=== PATIENT | male | born 1950 | race Caucasian/White ===

== ENCOUNTER 2016-07-29 16:41 | Inpatient (IN) | payer MEDICARE, OTHER ==
[~2016-07-29] VITALS: Ht 175.3 cm; Wt 124.2 kg
[2016-07-29] MEDS ORDERED: SODIUM CHLORIDE FLUSH 10ML SYR IVF ONE (17:00)
[2016-07-29] MEDS ORDERED: CEFAZOLIN PMX 1GM/50ML 50 ML IV ONE (17:30)
[2016-07-29] MEDS ORDERED: VANCOMYCIN PER PHARMACY MC PRN (17:30)
[2016-07-29] MEDS ORDERED: [UNRECOGNIZED DRUG - CODE] PO (17:31)
[2016-07-29] MEDS ORDERED: GABA600T2 PO (17:31)
[2016-07-29] MEDS ORDERED: FURO-93 PO (17:31)
[2016-07-29] MEDS ORDERED: ATOR10TA PO (17:31)
[2016-07-29] MEDS ORDERED: METF10002 PO (17:31)
[2016-07-29] MEDS ORDERED: POTA10TA11 PO (17:39)
[2016-07-29] MEDS ORDERED: INSU200I4 SQ (17:41)
[2016-07-29] MEDS ORDERED: CEFAZOLIN PMX 1GM/50ML 50 ML ONE (17:41)
[2016-07-29] MEDS ORDERED: LIRA0.6P2 SQ (17:41)
[2016-07-29] MEDS ORDERED: ONDANSETRON 2MG/ML, 2ML ONE (17:44)
[2016-07-29] MEDS ORDERED: MORPHINE SULFATE 4 MG/ML, 1ML ONE (17:44)
[2016-07-29 17:49] LABS: ASPARTATE AMINO TRANSFERASE 21 U/L (15-37); BLOOD UREA NITROGEN 46 mg/dL (7-18)
[2016-07-29] MEDS ORDERED: VANCOMYCIN 1,900 MG in SODIUM CHLORIDE 0.9% 250 ML IV ONE (18:00)
[2016-07-29] MEDS ORDERED: MORPHINE SULFATE 4 MG/ML, 1ML IVPush PRN (18:00)
[2016-07-29] MEDS ORDERED: ONDANSETRON 2MG/ML, 2ML IVPush ONE (18:00)
[2016-07-29] MEDS ORDERED: FUROSEMIDE 20 MG/2 ML IV ONE (18:30)
[2016-07-29] MEDS ORDERED: SODIUM CHLORIDE 0.9% 1,000ML IVBOLUS ONE (18:30)
[2016-07-29] MEDS ORDERED: FUROSEMIDE 20 MG/2 ML ONE (18:48)
[2016-07-29 18:53] LABS: ANTI-Xa-UNFRACTIONATED HEP 0.07 IU/mL (0.30-0.70)
[2016-07-29] MEDS ORDERED: HEPARIN 25,000 UNITS/500ML PMX 500 ML IV PRN (19:00)
[2016-07-29] MEDS ORDERED: HEPARIN 5,000 UNITS/ML, 1ML IV PRN (19:00)
[2016-07-29] MEDS ORDERED: HEPARIN 5,000 UNITS/ML, 1ML IV ONE (19:00)
[2016-07-29] MEDS ORDERED: HEPARIN 25,000 UNITS/500ML PMX 500 ML ONE (19:21)
[2016-07-29] MEDS ORDERED: HEPARIN 5,000 UNITS/ML, 1ML ONE (19:21)
[2016-07-29] MEDS ORDERED: ACETAMINOPHEN 325 MG TABLET PO PRN (19:30)
[2016-07-29] MEDS ORDERED: ONDANSETRON 2MG/ML, 2ML IVP PRN (19:30)
[2016-07-29] MEDS: CEFTAROLINE 300 MG in SODIUM CHLORIDE 0.9% 100 ML IV SCH (19:30)
[2016-07-29] MEDS ORDERED: PHARMACY MAY ADJ FOR RENAL FX MC PRN (19:30)
[2016-07-29] MEDS ORDERED: POLYETHYLENE GLYCOL 17 GM PACKET PO PRN (19:30)
[2016-07-29] MEDS ORDERED: BISACODYL 10 MG SUPP PR PRN (19:30)
[2016-07-29 20:13] LABS: PATH.CAST-FLAG NOT PRESENT; SPERM-FLAG NOT PRESENT; SRC-FLAG NOT PRESENT; XTAL-FLAG NOT PRESENT; YLC-FLAG NOT PRESENT
[2016-07-29 20:42] VITALS: BP 183/91
[2016-07-29] MEDS: SODIUM CHLORIDE 0.9% 1,000 ML IV SCH (21:13)
[2016-07-29] MEDS: CARVEDILOL 12.5 MG TABLET PO SCH (21:31)
[2016-07-29] MEDS: INSULIN REGULAR 100 UNITS/ML, 3ML VIAL SQ-INSULIN SCH (21:32)
[2016-07-29] MEDS: INSULIN DETEMIR 100 UNITS/ML, PEN SQ-INSULIN SCH (21:33)
[2016-07-29] MEDS: GABAPENTIN 300 MG CAPSULE PO SCH (21:35)
[2016-07-30 02:26] VITALS: BP 145/79
[2016-07-30 02:44] LABS: BLOOD UREA NITROGEN 46 mg/dL (7-18)
[2016-07-30 02:47] LABS: ASPARTATE AMINO TRANSFERASE 18 U/L (15-37)
[2016-07-30] MEDS: HEPARIN 5,000 UNITS/ML, 1ML IV PRN ×2 (02:48→15:43)
[2016-07-30] MEDS: SODIUM CHLORIDE 0.9% 1,000 ML IV SCH ×2 (06:33→20:11)
[2016-07-30] MEDS: CARVEDILOL 12.5 MG TABLET PO SCH ×2 (06:33→17:01)
[2016-07-30] MEDS: INSULIN REGULAR 100 UNITS/ML, 3ML VIAL SQ-INSULIN SCH ×4 (07:00→20:37)
[2016-07-30] MEDS: INSULIN DETEMIR 100 UNITS/ML, PEN SQ-INSULIN SCH ×2 (07:29→20:38)
[2016-07-30 08:00] VITALS: BP 137/78
[2016-07-30] MEDS ORDERED: PHARMACY MAY ADJ FOR RENAL FX MC PRN (09:30)
[2016-07-30] MEDS: ATORVASTATIN 10 MG TABLET PO SCH (09:33)
[2016-07-30] MEDS: CEFTAROLINE 300 MG in SODIUM CHLORIDE 0.9% 100 ML IV SCH ×2 (09:33→20:36)
[2016-07-30] MEDS: SENNA/DOCUSATE TABLET PO SCH (09:33)
[2016-07-30] MEDS: GABAPENTIN 300 MG CAPSULE PO SCH ×3 (09:33→20:11)
[2016-07-30] MEDS: TAMSULOSIN 0.4 MG CAP.ER.24H PO SCH (10:47)
[2016-07-30 14:12] VITALS: BP 153/81
[2016-07-30 15:01] LABS: C-REACTIVE PROTEIN, QUANT 0.23 mg/dL (0.02-0.49)
[2016-07-30] MEDS: OXYcodone IR 5MG TABLET PO PRN (17:01)
[2016-07-30 19:32] VITALS: BP 133/74
[2016-07-30] MEDS: HEPARIN 25,000 UNITS/500ML PMX 500 ML IV PRN (20:17)
[2016-07-31 01:46] VITALS: BP 115/72
[2016-07-31 03:49] LABS: BLOOD UREA NITROGEN 45 mg/dL (7-18)
[2016-07-31] MEDS: SODIUM CHLORIDE 0.9% 1,000 ML IV SCH ×2 (06:05→17:41)
[2016-07-31] MEDS: CARVEDILOL 12.5 MG TABLET PO SCH ×2 (06:05→17:45)
[2016-07-31] MEDS: INSULIN REGULAR 100 UNITS/ML, 3ML VIAL SQ-INSULIN SCH ×4 (07:00→22:50)
[2016-07-31 08:11] VITALS: BP 131/72
[2016-07-31] MEDS: TAMSULOSIN 0.4 MG CAP.ER.24H PO SCH (08:31)
[2016-07-31] MEDS: ATORVASTATIN 10 MG TABLET PO SCH (08:31)
[2016-07-31] MEDS: INSULIN DETEMIR 100 UNITS/ML, PEN SQ-INSULIN SCH ×2 (08:31→20:24)
[2016-07-31] MEDS: GABAPENTIN 300 MG CAPSULE PO SCH ×3 (08:31→22:50)
[2016-07-31] MEDS: SENNA/DOCUSATE TABLET PO SCH (09:00)
[2016-07-31] MEDS: CEFTAROLINE 300 MG in SODIUM CHLORIDE 0.9% 100 ML IV SCH ×2 (10:33→22:51)
[2016-07-31 13:29] VITALS: BP 121/68
[2016-07-31] MEDS: HEPARIN 25,000 UNITS/500ML PMX 500 ML IV PRN (17:45)
[2016-07-31 20:28] VITALS: BP 118/87
[2016-08-01 01:46] VITALS: BP 121/71
[2016-08-01 05:44] LABS: BLOOD UREA NITROGEN 47 mg/dL (7-18)
[2016-08-01 05:51] LABS: TOTAL IRON BINDING CAPACITY 217 mcg/dL (250-450)
[2016-08-01] MEDS: CARVEDILOL 12.5 MG TABLET PO SCH ×2 (05:53→18:00)
[2016-08-01] MEDS: SODIUM CHLORIDE 0.9% 1,000 ML IV SCH (05:53)
[2016-08-01] MEDS: HEPARIN 5,000 UNITS/ML, 1ML IV PRN ×2 (06:14→23:53)
[2016-08-01] MEDS: INSULIN REGULAR 100 UNITS/ML, 3ML VIAL SQ-INSULIN SCH ×4 (07:00→21:32)
[2016-08-01 07:55] VITALS: BP 118/65
[2016-08-01] MEDS: INSULIN DETEMIR 100 UNITS/ML, PEN SQ-INSULIN SCH ×2 (08:40→19:40)
[2016-08-01] MEDS: CEFTAROLINE 300 MG in SODIUM CHLORIDE 0.9% 100 ML IV SCH (08:40)
[2016-08-01] MEDS: SENNA/DOCUSATE TABLET PO SCH (08:41)
[2016-08-01] MEDS: ATORVASTATIN 10 MG TABLET PO SCH (08:41)
[2016-08-01] MEDS: GABAPENTIN 300 MG CAPSULE PO SCH ×3 (08:41→21:29)
[2016-08-01] MEDS: TAMSULOSIN 0.4 MG CAP.ER.24H PO SCH (08:41)
[2016-08-01] MEDS ORDERED: FUROSEMIDE 20 MG/2 ML ONE (12:33)
[2016-08-01 13:38] VITALS: BP 156/85
[2016-08-01] MEDS: HEPARIN 25,000 UNITS/500ML PMX 500 ML IV PRN (13:55)
[2016-08-01] MEDS: CHOLECALCIFEROL 1,000 UNIT TABLET PO SCH (15:08)
[2016-08-01] MEDS: OXYcodone IR 5MG TABLET PO PRN (15:08)
[2016-08-01 20:27] VITALS: BP 150/77
[2016-08-01] MEDS: DOXYCYCLINE 100MG TABLET PO SCH (21:30)
[2016-08-02 01:33] VITALS: BP 119/68
[2016-08-02] MEDS: OXYcodone IR 5MG TABLET PO PRN ×3 (01:47→16:31)
[2016-08-02] MEDS: CARVEDILOL 12.5 MG TABLET PO SCH ×2 (06:02→17:08)
[2016-08-02 06:17] LABS: BLOOD UREA NITROGEN 41 mg/dL (7-18)
[2016-08-02] MEDS: HEPARIN 25,000 UNITS/500ML PMX 500 ML IV PRN (08:21)
[2016-08-02 08:30] VITALS: BP 125/71
[2016-08-02] MEDS: INSULIN DETEMIR 100 UNITS/ML, PEN SQ-INSULIN SCH ×2 (08:31→20:08)
[2016-08-02] MEDS: INSULIN REGULAR 100 UNITS/ML, 3ML VIAL SQ-INSULIN SCH ×4 (08:32→20:09)
[2016-08-02] MEDS: ATORVASTATIN 10 MG TABLET PO SCH (08:33)
[2016-08-02] MEDS: DOXYCYCLINE 100MG TABLET PO SCH ×2 (08:33→20:08)
[2016-08-02] MEDS: TAMSULOSIN 0.4 MG CAP.ER.24H PO SCH (08:33)
[2016-08-02] MEDS: SENNA/DOCUSATE TABLET PO SCH (08:33)
[2016-08-02] MEDS: GABAPENTIN 300 MG CAPSULE PO SCH ×3 (08:34→20:08)
[2016-08-02] MEDS: CHOLECALCIFEROL 1,000 UNIT TABLET PO SCH (08:34)
[2016-08-02] MEDS: FUROSEMIDE 20 MG TABLET PO SCH (13:52)
[2016-08-02 14:30] VITALS: BP 133/70
[2016-08-02 19:43] VITALS: BP 116/68
[2016-08-03] MEDS: OXYcodone IR 5MG TABLET PO PRN ×4 (00:10→17:21)
[2016-08-03 02:11] VITALS: BP 124/67
[2016-08-03] MEDS: HEPARIN 25,000 UNITS/500ML PMX 500 ML IV PRN ×3 (02:30→19:51)
[2016-08-03 05:59] LABS: BLOOD UREA NITROGEN 49 mg/dL (7-18)
[2016-08-03] MEDS: CARVEDILOL 12.5 MG TABLET PO SCH ×3 (06:18→17:21)
[2016-08-03] MEDS: HEPARIN 5,000 UNITS/ML, 1ML IV PRN ×3 (06:39→19:50)
[2016-08-03 07:18] VITALS: BP 121/69
[2016-08-03] MEDS: CHOLECALCIFEROL 1,000 UNIT TABLET PO SCH (07:46)
[2016-08-03] MEDS: ATORVASTATIN 10 MG TABLET PO SCH (07:46)
[2016-08-03] MEDS: TAMSULOSIN 0.4 MG CAP.ER.24H PO SCH (07:46)
[2016-08-03] MEDS: FUROSEMIDE 20 MG TABLET PO SCH (07:46)
[2016-08-03] MEDS: GABAPENTIN 300 MG CAPSULE PO SCH ×3 (07:46→20:32)
[2016-08-03] MEDS: DOXYCYCLINE 100MG TABLET PO SCH ×2 (07:46→20:32)
[2016-08-03] MEDS: INSULIN DETEMIR 100 UNITS/ML, PEN SQ-INSULIN SCH ×2 (07:47→20:32)
[2016-08-03] MEDS: SENNA/DOCUSATE TABLET PO SCH (07:47)
[2016-08-03] MEDS: INSULIN REGULAR 100 UNITS/ML, 3ML VIAL SQ-INSULIN SCH ×4 (07:47→20:36)
[2016-08-03 13:59] VITALS: BP 107/64
[2016-08-03 19:18] VITALS: BP 136/73
[2016-08-04] VITALS (7 sets, daily range): BP systolic 121–177; BP diastolic 66–87
[2016-08-04 02:23] LABS: BLOOD UREA NITROGEN 63 mg/dL (7-18)
[2016-08-04 02:37] LABS: DIFF TOTAL CELLS COUNTED 100 CELL DIFF
[2016-08-04 02:40] LABS: ANISOCYTOSIS 1+; VERIFY COUNTS? YES
[2016-08-04] MEDS: OXYcodone IR 5MG TABLET PO PRN ×2 (04:39→12:37)
[2016-08-04] MEDS: HEPARIN 25,000 UNITS/500ML PMX 500 ML IV PRN ×2 (05:57→17:33)
[2016-08-04] MEDS: CARVEDILOL 12.5 MG TABLET PO SCH ×2 (05:58→17:16)
[2016-08-04] MEDS: INSULIN DETEMIR 100 UNITS/ML, PEN SQ-INSULIN SCH ×3 (07:30→22:03)
[2016-08-04] MEDS: INSULIN REGULAR 100 UNITS/ML, 3ML VIAL SQ-INSULIN SCH ×4 (08:55→22:04)
[2016-08-04] MEDS: GABAPENTIN 300 MG CAPSULE PO SCH ×3 (08:59→21:58)
[2016-08-04] MEDS: TAMSULOSIN 0.4 MG CAP.ER.24H PO SCH (08:59)
[2016-08-04] MEDS: FUROSEMIDE 20 MG TABLET PO SCH (08:59)
[2016-08-04] MEDS: CHOLECALCIFEROL 1,000 UNIT TABLET PO SCH (09:00)
[2016-08-04] MEDS: DOXYCYCLINE 100MG TABLET PO SCH ×2 (09:00→21:58)
[2016-08-04] MEDS: SENNA/DOCUSATE TABLET PO SCH (09:00)
[2016-08-04] MEDS ORDERED: MAALOX/HYOSCYAMINE/LIDOCAINE 45 ML BOTTLE PO ONE (11:00)
[2016-08-04 11:06] LABS: UR ALBUMIN 79.1 % (.); UR ALPHA-1-GLOBULIN 1.4 % (.); UR ALPHA-2-GLOBULIN 3.8 % (.); UR GAMMA GLOBULIN 6.8 % (.); UR M-SPIKE % Not Observed % (Not Observed)
[2016-08-04 11:59] LABS: IS PT STATUS REG ER OR PRE ER? NO
[2016-08-04 16:06] LABS: APTT 25.2 sec (.); PROTHROMBIN TIME 10.7 sec (.)
[2016-08-04 17:21] LABS: IS PT STATUS REG ER OR PRE ER? NO
[2016-08-04] MEDS ORDERED: INSULIN DETEMIR 100 UNITS/ML, PEN SQ-INSULIN SCH (19:30)
[2016-08-04] MEDS: ATORVASTATIN 10 MG TABLET PO SCH (21:58)
[2016-08-05 03:19] VITALS: BP 138/75
[2016-08-05] MEDS: CARVEDILOL 12.5 MG TABLET PO SCH ×2 (05:49→18:01)
[2016-08-05] MEDS: OXYcodone IR 5MG TABLET PO PRN ×5 (05:49→23:40)
[2016-08-05 06:39] LABS: BLOOD UREA NITROGEN 78 mg/dL (7-18)
[2016-08-05] MEDS: HEPARIN 25,000 UNITS/500ML PMX 500 ML IV PRN ×2 (06:45→18:22)
[2016-08-05 07:08] VITALS: BP 94/52
[2016-08-05] MEDS: HEPARIN 5,000 UNITS/ML, 1ML IV PRN ×3 (07:20→21:26)
[2016-08-05] MEDS: SENNA/DOCUSATE TABLET PO SCH (09:00)
[2016-08-05 09:10] VITALS: BP 115/65
[2016-08-05] MEDS: INSULIN REGULAR 100 UNITS/ML, 3ML VIAL SQ-INSULIN SCH ×4 (09:11→21:32)
[2016-08-05] MEDS: TAMSULOSIN 0.4 MG CAP.ER.24H PO SCH (09:12)
[2016-08-05] MEDS: GABAPENTIN 300 MG CAPSULE PO SCH ×3 (09:12→21:30)
[2016-08-05] MEDS: DOXYCYCLINE 100MG TABLET PO SCH ×2 (09:12→21:31)
[2016-08-05] MEDS: INSULIN DETEMIR 100 UNITS/ML, PEN SQ-INSULIN SCH ×2 (09:13→21:31)
[2016-08-05] MEDS: CHOLECALCIFEROL 1,000 UNIT TABLET PO SCH (09:13)
[2016-08-05 12:06] LABS: A/G RATIO 1.3 (0.7-1.7); ALBUMIN 2.8 g/dL (2.9-4.4); ALPHA-1-GLOBULIN 0.2 g/dL (0.0-0.4); BETA GLOBULIN 0.7 g/dL (0.7-1.3); GAMMA GLOBULIN 0.4 g/dL (0.4-1.8); PROTEIN TOTAL 4.9 g/dL (6.0-8.5)
[2016-08-05 13:27] VITALS: BP 131/68
[2016-08-05 20:55] VITALS: BP 142/71
[2016-08-05] MEDS: ATORVASTATIN 10 MG TABLET PO SCH (21:30)
[2016-08-06 02:59] VITALS: BP 130/72
[2016-08-06 04:08] LABS: BLOOD UREA NITROGEN 89 mg/dL (7-18)
[2016-08-06] MEDS: HEPARIN 5,000 UNITS/ML, 1ML IV PRN ×2 (04:42→12:44)
[2016-08-06] MEDS: CARVEDILOL 12.5 MG TABLET PO SCH ×2 (05:00→17:45)
[2016-08-06] MEDS: HEPARIN 25,000 UNITS/500ML PMX 500 ML IV PRN ×2 (06:19→18:42)
[2016-08-06 07:45] VITALS: BP 112/67
[2016-08-06] MEDS: INSULIN REGULAR 100 UNITS/ML, 3ML VIAL SQ-INSULIN SCH ×4 (08:17→21:16)
[2016-08-06] MEDS: CHOLECALCIFEROL 1,000 UNIT TABLET PO SCH (08:18)
[2016-08-06] MEDS: GABAPENTIN 300 MG CAPSULE PO SCH ×3 (08:18→21:15)
[2016-08-06] MEDS: DOXYCYCLINE 100MG TABLET PO SCH ×2 (08:18→21:15)
[2016-08-06] MEDS: ATORVASTATIN 10 MG TABLET PO SCH (08:19)
[2016-08-06] MEDS: TAMSULOSIN 0.4 MG CAP.ER.24H PO SCH (08:19)
[2016-08-06] MEDS: SENNA/DOCUSATE TABLET PO SCH (08:19)
[2016-08-06] MEDS: INSULIN DETEMIR 100 UNITS/ML, PEN SQ-INSULIN SCH ×2 (08:20→21:16)
[2016-08-06] MEDS: OXYcodone IR 5MG TABLET PO PRN ×3 (11:17→21:16)
[2016-08-06 15:15] VITALS: BP 132/77
[2016-08-06 19:46] VITALS: BP 137/72
[2016-08-07 01:21] VITALS: BP 134/73
[2016-08-07] MEDS: HEPARIN 25,000 UNITS/500ML PMX 500 ML IV PRN ×2 (03:31→14:02)
[2016-08-07] MEDS: CARVEDILOL 12.5 MG TABLET PO SCH ×2 (05:19→17:19)
[2016-08-07 08:21] LABS: BLOOD UREA NITROGEN 96 mg/dL (7-18)
[2016-08-07 08:45] VITALS: BP 129/73
[2016-08-07] MEDS: SENNA/DOCUSATE TABLET PO SCH (09:00)
[2016-08-07] MEDS: GABAPENTIN 300 MG CAPSULE PO SCH ×3 (09:22→22:20)
[2016-08-07] MEDS: TAMSULOSIN 0.4 MG CAP.ER.24H PO SCH (09:22)
[2016-08-07] MEDS: DOXYCYCLINE 100MG TABLET PO SCH ×2 (09:22→22:20)
[2016-08-07] MEDS: ATORVASTATIN 10 MG TABLET PO SCH (09:22)
[2016-08-07] MEDS: CHOLECALCIFEROL 1,000 UNIT TABLET PO SCH (09:23)
[2016-08-07] MEDS: INSULIN DETEMIR 100 UNITS/ML, PEN SQ-INSULIN SCH ×2 (09:24→22:21)
[2016-08-07] MEDS: INSULIN REGULAR 100 UNITS/ML, 3ML VIAL SQ-INSULIN SCH ×4 (09:25→22:21)
[2016-08-07] MEDS: OXYcodone IR 5MG TABLET PO PRN ×3 (12:17→22:20)
[2016-08-07] MEDS: SODIUM CHLORIDE 0.9% 1,000 ML IV SCH (13:00)
[2016-08-07 15:20] VITALS: BP 128/73
[2016-08-07 20:58] VITALS: BP 124/70
[2016-08-08] MEDS: HEPARIN 25,000 UNITS/500ML PMX 500 ML IV PRN ×3 (01:05→20:55)
[2016-08-08] MEDS: SODIUM CHLORIDE 0.9% 1,000 ML IV SCH (01:06)
[2016-08-08 01:31] VITALS: BP 156/80
[2016-08-08] MEDS: OXYcodone IR 5MG TABLET PO PRN ×4 (01:47→22:22)
[2016-08-08 05:09] LABS: BLOOD UREA NITROGEN 94 mg/dL (7-18)
[2016-08-08] MEDS: CARVEDILOL 12.5 MG TABLET PO SCH ×2 (05:54→17:41)
[2016-08-08] MEDS: INSULIN REGULAR 100 UNITS/ML, 3ML VIAL SQ-INSULIN SCH ×4 (07:00→22:23)
[2016-08-08 08:32] VITALS: BP 152/82
[2016-08-08] MEDS: TAMSULOSIN 0.4 MG CAP.ER.24H PO SCH (09:36)
[2016-08-08] MEDS: SENNA/DOCUSATE TABLET PO SCH (09:36)
[2016-08-08] MEDS: GABAPENTIN 300 MG CAPSULE PO SCH ×3 (09:36→22:23)
[2016-08-08] MEDS: CHOLECALCIFEROL 1,000 UNIT TABLET PO SCH (09:37)
[2016-08-08] MEDS: DOXYCYCLINE 100MG TABLET PO SCH ×2 (09:37→22:23)
[2016-08-08] MEDS: ATORVASTATIN 10 MG TABLET PO SCH (09:37)
[2016-08-08] MEDS: INSULIN DETEMIR 100 UNITS/ML, PEN SQ-INSULIN SCH ×2 (09:38→22:24)
[2016-08-08] MEDS: FUROSEMIDE 20 MG/2 ML IV SCH (12:30)
[2016-08-08 14:24] VITALS: BP 150/82
[2016-08-08 20:43] VITALS: BP 144/84
[2016-08-09 03:40] VITALS: BP 147/72
[2016-08-09 05:51] LABS: BLOOD UREA NITROGEN 96 mg/dL (7-18)
[2016-08-09] MEDS: HEPARIN 25,000 UNITS/500ML PMX 500 ML IV PRN (06:11)
[2016-08-09] MEDS: OXYcodone IR 5MG TABLET PO PRN ×2 (06:12→23:00)
[2016-08-09] MEDS: CARVEDILOL 12.5 MG TABLET PO SCH ×2 (06:12→17:35)
[2016-08-09 06:53] VITALS: BP 145/75
[2016-08-09] MEDS: TAMSULOSIN 0.4 MG CAP.ER.24H PO SCH (09:00)
[2016-08-09] MEDS: GABAPENTIN 300 MG CAPSULE PO SCH ×3 (09:00→20:24)
[2016-08-09] MEDS: CHOLECALCIFEROL 1,000 UNIT TABLET PO SCH (09:00)
[2016-08-09] MEDS: SENNA/DOCUSATE TABLET PO SCH (09:00)
[2016-08-09] MEDS: INSULIN REGULAR 100 UNITS/ML, 3ML VIAL SQ-INSULIN SCH ×4 (09:00→20:24)
[2016-08-09] MEDS: ATORVASTATIN 10 MG TABLET PO SCH (09:00)
[2016-08-09] MEDS: INSULIN DETEMIR 100 UNITS/ML, PEN SQ-INSULIN SCH ×2 (09:38→20:23)
[2016-08-09] MEDS: DOXYCYCLINE 100MG TABLET PO SCH ×2 (09:39→20:24)
[2016-08-09] MEDS: FUROSEMIDE 20 MG/2 ML IV SCH (09:39)
[2016-08-09] MEDS: APIXABAN 5 MG TABLET PO SCH ×2 (12:19→21:00)
[2016-08-09 12:45] VITALS: BP 148/80
[2016-08-09 20:06] VITALS: BP 159/83
[2016-08-10 01:34] VITALS: BP 145/77
[2016-08-10] MEDS: MORPHINE SULFATE 4 MG/ML, 1ML IVPush PRN ×2 (02:40→09:06)
[2016-08-10] MEDS: CARVEDILOL 12.5 MG TABLET PO SCH ×2 (05:19→17:20)
[2016-08-10 05:59] LABS: BLOOD UREA NITROGEN 95 mg/dL (7-18)
[2016-08-10 07:00] VITALS: BP 163/78
[2016-08-10] MEDS: ATORVASTATIN 10 MG TABLET PO SCH (08:48)
[2016-08-10] MEDS: TAMSULOSIN 0.4 MG CAP.ER.24H PO SCH (08:48)
[2016-08-10] MEDS: DOXYCYCLINE 100MG TABLET PO SCH ×2 (08:48→21:28)
[2016-08-10] MEDS: SENNA/DOCUSATE TABLET PO SCH (08:48)
[2016-08-10] MEDS: GABAPENTIN 300 MG CAPSULE PO SCH ×3 (08:48→21:28)
[2016-08-10] MEDS: CHOLECALCIFEROL 1,000 UNIT TABLET PO SCH (08:48)
[2016-08-10] MEDS: APIXABAN 5 MG TABLET PO SCH ×2 (08:49→21:28)
[2016-08-10] MEDS: FUROSEMIDE 20 MG/2 ML IV SCH (08:49)
[2016-08-10] MEDS: INSULIN DETEMIR 100 UNITS/ML, PEN SQ-INSULIN SCH ×2 (08:53→21:59)
[2016-08-10] MEDS: INSULIN REGULAR 100 UNITS/ML, 3ML VIAL SQ-INSULIN SCH ×4 (08:54→21:00)
[2016-08-10] MEDS: OXYcodone IR 5MG TABLET PO PRN ×2 (10:53→21:30)
[2016-08-10 12:30] VITALS: BP 116/63
[2016-08-10 19:20] VITALS: BP 107/68
[2016-08-11 04:17] VITALS: BP 134/77
[2016-08-11] MEDS: CARVEDILOL 12.5 MG TABLET PO SCH ×2 (05:51→18:08)
[2016-08-11 06:30] VITALS: BP 120/61
[2016-08-11] MEDS: INSULIN REGULAR 100 UNITS/ML, 3ML VIAL SQ-INSULIN SCH ×4 (07:00→17:28)
[2016-08-11] MEDS: DOXYCYCLINE 100MG TABLET PO SCH (08:51)
[2016-08-11] MEDS: SENNA/DOCUSATE TABLET PO SCH (08:52)
[2016-08-11] MEDS: APIXABAN 5 MG TABLET PO SCH (08:52)
[2016-08-11] MEDS: CHOLECALCIFEROL 1,000 UNIT TABLET PO SCH (08:52)
[2016-08-11] MEDS: GABAPENTIN 300 MG CAPSULE PO SCH ×2 (08:52→16:00)
[2016-08-11] MEDS: ATORVASTATIN 10 MG TABLET PO SCH (08:52)
[2016-08-11] MEDS: TAMSULOSIN 0.4 MG CAP.ER.24H PO SCH (08:52)
[2016-08-11] MEDS: FUROSEMIDE 20 MG/2 ML IV SCH (08:53)
[2016-08-11] MEDS: INSULIN DETEMIR 100 UNITS/ML, PEN SQ-INSULIN SCH (08:53)
[2016-08-11 13:24] VITALS: BP 127/71
[2016-08-11] MEDS ORDERED: INSU100I28 SQ-INSULIN (14:16)
[2016-08-11] MEDS ORDERED: APIX5TAB PO (14:16)
[2016-08-11] MEDS ORDERED: CARV12.543 PO (14:16)
[2016-08-11] MEDS ORDERED: OXYC5TAB3 PO (14:16)
[2016-08-11] MEDS ORDERED: DOXY100T PO (14:16)
[2016-08-11] MEDS ORDERED: TAMS-11 PO (14:16)
[2016-08-11] MEDS ORDERED: HYDR-3343 PO (14:16)
[2016-08-11] MEDS ORDERED: CHOL10003 PO (14:16)
[2016-08-11] MEDS: OXYcodone IR 5MG TABLET PO PRN (18:08)
[2016-08-16] MEDS ORDERED: APIXABAN 5 MG TABLET PO SCH (09:00)
== END 2016-08-11 18:19 | DRG 602 ==
LOC: ED 17:40 → EDIP 19:24 → 3NE 21:00 → 5SO 08-04 13:39 → 4EST 08-04 20:22
PROVIDERS: ADMIT Internal Medicine; ATTEND Family Medicine
PROC: 0T9B70Z Drainage of Bladder with Drainage Device, Via Natural or Artificial Opening (ICD-10-PCS; principal; 2016-08-09)
DX: L03.116 Cellulitis of left lower limb (principal); N17.0 Acute kidney failure with tubular necrosis; I82.431 Acute embolism and thrombosis of right popliteal vein; N18.4 Chronic kidney disease, stage 4 (severe); E44.0 Moderate protein-calorie malnutrition; D68.59 Other primary thrombophilia; C64.9 Malignant neoplasm of unspecified kidney, except renal pelvis; Z68.41 Body mass index [BMI] 40.0-44.9, adult; N17.9 Acute kidney failure, unspecified; N13.30 Unspecified hydronephrosis; I82.442 Acute embolism and thrombosis of left tibial vein; L03.115 Cellulitis of right lower limb; N35.9 Urethral stricture, unspecified; D63.8 Anemia in other chronic diseases classified elsewhere; E11.21 Type 2 diabetes mellitus with diabetic nephropathy; E11.22 Type 2 diabetes mellitus with diabetic chronic kidney disease; E11.65 Type 2 diabetes mellitus with hyperglycemia; E21.3 Hyperparathyroidism, unspecified; E55.9 Vitamin D deficiency, unspecified; E78.5 Hyperlipidemia, unspecified; E87.70 Fluid overload, unspecified; I13.10 Hypertensive heart and chronic kidney disease without heart failure, with stage 1 through stage 4 chronic kidney disease, or unspecified chronic kidney disease; I25.10 Atherosclerotic heart disease of native coronary artery without angina pectoris; K40.90 Unilateral inguinal hernia, without obstruction or gangrene, not specified as recurrent; N32.0 Bladder-neck obstruction; N32.3 Diverticulum of bladder; N32.89 Other specified disorders of bladder; N40.0 Benign prostatic hyperplasia without lower urinary tract symptoms; Z79.01 Long term (current) use of anticoagulants; Z79.4 Long term (current) use of insulin; I25.2 Old myocardial infarction; Z80.9 Family history of malignant neoplasm, unspecified; Z82.49 Family history of ischemic heart disease and other diseases of the circulatory system; Z83.3 Family history of diabetes mellitus; Z86.711 Personal history of pulmonary embolism; Z86.718 Personal history of other venous thrombosis and embolism; Z95.5 Presence of coronary angioplasty implant and graft
CPT/HCPCS: 36415; 71010; 74176; 76770; 78708; 80048; 80053; 81001; 81241; 82306; 82436; 82550; 82570; 82728; 82962; 83036; 83540; 83550; 83735; 83880; 83970; 84100; 84133; 84145; 84155; 84156; 84165; 84166; 84300; 84484; 85025; 85303; 85306; 85520; 85598; 85610; 85613; 85651; 85670; 85730; 85732; 86140; 86146; 86147; 87040; 93005; 93306; 93970; 96365; 96366; 96375; J0690; J0712; J1644; J1815; J2405; J3370; A9562; C9898; J1940; J7030; J7050

== ENCOUNTER 2017-02-02 09:15 | Inpatient (IN) | payer MEDICARE ==
[~2017-02-02] VITALS: Ht 175.3 cm; Wt 88.1 kg
[~2017-02-02 09:15] MED LIST: APIX5TAB PO; ATOR10TA PO; CARV12.543 PO; CHOL10003 PO; DOXY100T PO; FURO-93 PO; GABA600T2 PO; HYDR-3343 PO; INSU100I28 SQ-INSULIN; INSU200I4 SQ; LIRA0.6P2 SQ; METF10002 PO; OXYC5TAB3 PO; POTA10TA11 PO; TAMS-11 PO; [UNRECOGNIZED DRUG - CODE] PO
[2017-02-02] MEDS ORDERED: SODIUM CHLORIDE FLUSH 10ML SYR IVF ONE (09:30)
[2017-02-02] MEDS ORDERED: PLEASE ENTER HEIGHT AND WEIGHT MC SCH (09:30)
[2017-02-02 09:46] LABS: WHITE BLOOD COUNT 9.4 x10^3/uL (3.4-10)
[2017-02-02] MEDS ORDERED: FINA1TAB16 PO (09:57)
[2017-02-02] MEDS ORDERED: DULO20CA45 PO (09:57)
[2017-02-02] MEDS ORDERED: ONDA4TAB7 PO (09:57)
[2017-02-02] MEDS ORDERED: MIRT7.5T8 PO (09:57)
[2017-02-02 09:59] LABS: BLOOD UREA NITROGEN 74 mg/dL (7-18)
[2017-02-02 10:26] LABS: ASPARTATE AMINO TRANSFERASE 11 U/L (15-37)
[2017-02-02] MEDS ORDERED: DEXTROSE 50%, 50ML SYRINGE IVPush ONE (11:00)
[2017-02-02] MEDS ORDERED: SODIUM BICARB 8.4%, 50ML SYRINGE IVPush ONE (11:00)
[2017-02-02] MEDS ORDERED: INSULIN REGULAR 100 UNITS/ML, 3ML VIAL IVPush ONE (11:00)
[2017-02-02] MEDS ORDERED: INSULIN REGULAR 100 UNITS/ML, 3ML VIAL ONE (11:09)
[2017-02-02] MEDS ORDERED: CALCIUM CHLORIDE 10%, 10ML SYR ONE (11:10)
[2017-02-02] MEDS ORDERED: SODIUM BICARB 8.4%, 50ML SYRINGE ONE (11:11)
[2017-02-02] MEDS ORDERED: DEXTROSE 50%, 50ML SYRINGE ONE (11:11)
[2017-02-02] MEDS ORDERED: CALCIUM CHLORIDE 10%, 10ML SYR IVPush ONE (11:30)
[2017-02-02 11:45] LABS: TOTAL IRON BINDING CAPACITY 173 mcg/dL (250-450)
[2017-02-02] MEDS: CEFTRIAXONE PMX 2GM/50ML 50 ML IV SCH (12:30)
[2017-02-02] MEDS: INSULIN ASPART 100 UNITS/ML, PEN SQ-INSULIN SCH ×3 (12:30→22:26)
[2017-02-02] MEDS ORDERED: ACETAMINOPHEN 325 MG TABLET PO PRN (12:30)
[2017-02-02] MEDS: TAMSULOSIN 0.4 MG CAP.ER.24H PO SCH (12:30)
[2017-02-02] MEDS ORDERED: SODIUM POLYSTYRENE SULFONATE ORAL SUSP PO ONE (12:30)
[2017-02-02] MEDS: FERROUS SULFATE 325 MG TABLET PO SCH ×2 (12:30→17:45)
[2017-02-02] MEDS ORDERED: TEMAZEPAM 15 MG CAPSULE PO PRN (12:30)
[2017-02-02] MEDS ORDERED: morphine SULFATE 10 MG/ML, 1ML IVPush PRN (12:30)
[2017-02-02] MEDS ORDERED: ONDANSETRON 2MG/ML, 2ML IVPush PRN (12:30)
[2017-02-02] MEDS: ATORVASTATIN 10 MG TABLET PO SCH (12:30)
[2017-02-02] MEDS: HEPARIN 5,000 UNITS/ML, 1ML SQ SCH ×2 (13:00→22:27)
[2017-02-02] MEDS: GABAPENTIN 300 MG CAPSULE PO SCH ×2 (16:41→22:27)
[2017-02-02 20:00] VITALS: BP 144/72
[2017-02-02] MEDS: INSULIN DETEMIR 100 UNITS/ML, PEN SQ-INSULIN SCH (22:27)
[2017-02-02] MEDS: CARVEDILOL 12.5 MG TABLET PO SCH (22:27)
[2017-02-03 02:00] VITALS: BP 121/72
[2017-02-03] MEDS ORDERED: LACTULOSE 10 GM/15 ML UDC PO PRN (02:00)
[2017-02-03] MEDS ORDERED: POLYETHYLENE GLYCOL 17 GM PACKET PO PRN (02:00)
[2017-02-03] MEDS: HYDROcodone/APAP 5/325 TABLET PO PRN ×2 (02:43→10:53)
[2017-02-03 02:48] VITALS: BP 162/87
[2017-02-03 05:34] LABS: HEMATOCRIT 26.4 % (39.2-51.8); HEMOGLOBIN 8.9 g/dL (13.7-18.0)
[2017-02-03] MEDS: HEPARIN 5,000 UNITS/ML, 1ML SQ SCH ×2 (05:36→16:12)
[2017-02-03 05:42] LABS: BLOOD UREA NITROGEN 67 mg/dL (7-18)
[2017-02-03 05:47] LABS: ASPARTATE AMINO TRANSFERASE 15 U/L (15-37)
[2017-02-03 08:00] VITALS: BP 158/87
[2017-02-03] MEDS: GABAPENTIN 300 MG CAPSULE PO SCH ×3 (08:00→21:49)
[2017-02-03] MEDS: CARVEDILOL 12.5 MG TABLET PO SCH ×2 (08:01→21:49)
[2017-02-03] MEDS: TAMSULOSIN 0.4 MG CAP.ER.24H PO SCH (08:02)
[2017-02-03] MEDS: ATORVASTATIN 10 MG TABLET PO SCH (08:03)
[2017-02-03] MEDS: FERROUS SULFATE 325 MG TABLET PO SCH ×3 (08:04→16:13)
[2017-02-03] MEDS: INSULIN ASPART 100 UNITS/ML, PEN SQ-INSULIN SCH ×4 (08:05→21:48)
[2017-02-03] MEDS: DOCUSATE 100 MG CAPSULE PO SCH ×2 (08:08→21:49)
[2017-02-03] MEDS: CEFTRIAXONE PMX 2GM/50ML 50 ML IV SCH (12:43)
[2017-02-03] MEDS: ERGOCALCIFEROL 50,000 UNIT CAPSULE PO SCH (12:43)
[2017-02-03 14:22] VITALS: BP 112/64
[2017-02-03] MEDS: NYSTATIN/TRIAMCINOLONE CRM 15GM TP SCH ×3 (16:12→21:50)
[2017-02-03 20:00] VITALS: BP 139/66
[2017-02-03] MEDS: INSULIN DETEMIR 100 UNITS/ML, PEN SQ-INSULIN SCH (21:49)
[2017-02-04] VITALS (7 sets, daily range): BP systolic 131–173; BP diastolic 68–90
[2017-02-04] MEDS: HEPARIN 5,000 UNITS/ML, 1ML SQ SCH ×3 (00:44→16:24)
[2017-02-04 06:00] LABS: BLOOD UREA NITROGEN 56 mg/dL (7-18)
[2017-02-04] MEDS: INSULIN ASPART 100 UNITS/ML, PEN SQ-INSULIN SCH ×4 (09:04→20:00)
[2017-02-04] MEDS: ATORVASTATIN 10 MG TABLET PO SCH (09:04)
[2017-02-04] MEDS: CARVEDILOL 12.5 MG TABLET PO SCH ×2 (09:04→19:59)
[2017-02-04] MEDS: NYSTATIN/TRIAMCINOLONE CRM 15GM TP SCH ×3 (09:04→19:59)
[2017-02-04] MEDS: TAMSULOSIN 0.4 MG CAP.ER.24H PO SCH (09:04)
[2017-02-04] MEDS: GABAPENTIN 300 MG CAPSULE PO SCH ×3 (09:04→19:58)
[2017-02-04] MEDS: DOCUSATE 100 MG CAPSULE PO SCH ×2 (09:04→19:58)
[2017-02-04] MEDS: FERROUS SULFATE 325 MG TABLET PO SCH ×3 (09:04→16:25)
[2017-02-04] MEDS: CEFTRIAXONE PMX 2GM/50ML 50 ML IV SCH (11:48)
[2017-02-04] MEDS ORDERED: PHARMACY INSTRUCTION MC SCH (17:00)
[2017-02-04] MEDS: FLUCONAZOLE 200 MG/100 ML 100 ML IV SCH (18:08)
[2017-02-04] MEDS: INSULIN DETEMIR 100 UNITS/ML, PEN SQ-INSULIN SCH (19:59)
[2017-02-04] MEDS: hydrALAzine 20 MG/ML, 1ML IVPush PRN (22:43)
[2017-02-05] MEDS: HEPARIN 5,000 UNITS/ML, 1ML SQ SCH ×3 (01:12→16:45)
[2017-02-05 02:00] VITALS: BP 159/80
[2017-02-05 07:48] VITALS: BP 171/81
[2017-02-05] MEDS: ATORVASTATIN 10 MG TABLET PO SCH (08:48)
[2017-02-05] MEDS: INSULIN ASPART 100 UNITS/ML, PEN SQ-INSULIN SCH ×4 (08:48→20:36)
[2017-02-05] MEDS: DOCUSATE 100 MG CAPSULE PO SCH ×2 (08:48→20:32)
[2017-02-05] MEDS: CARVEDILOL 12.5 MG TABLET PO SCH ×2 (08:48→20:33)
[2017-02-05] MEDS: GABAPENTIN 300 MG CAPSULE PO SCH ×3 (08:48→20:33)
[2017-02-05] MEDS: NYSTATIN/TRIAMCINOLONE CRM 15GM TP SCH ×3 (08:49→20:36)
[2017-02-05] MEDS: TAMSULOSIN 0.4 MG CAP.ER.24H PO SCH (08:49)
[2017-02-05] MEDS: FERROUS SULFATE 325 MG TABLET PO SCH ×3 (08:49→16:45)
[2017-02-05] MEDS: CEFTRIAXONE PMX 2GM/50ML 50 ML IV SCH (12:07)
[2017-02-05 14:55] VITALS: BP 156/88
[2017-02-05] MEDS: FLUCONAZOLE 200 MG/100 ML 100 ML IV SCH (16:45)
[2017-02-05 18:51] VITALS: BP 174/91
[2017-02-05] MEDS: INSULIN DETEMIR 100 UNITS/ML, PEN SQ-INSULIN SCH (20:34)
[2017-02-06] MEDS: HEPARIN 5,000 UNITS/ML, 1ML SQ SCH ×4 (00:33→23:57)
[2017-02-06 00:35] VITALS: BP 146/80
[2017-02-06 05:54] LABS: BLOOD UREA NITROGEN 50 mg/dL (7-18)
[2017-02-06 08:05] VITALS: BP 143/78
[2017-02-06] MEDS: GABAPENTIN 300 MG CAPSULE PO SCH ×3 (08:17→20:39)
[2017-02-06] MEDS: FERROUS SULFATE 325 MG TABLET PO SCH ×3 (08:17→16:26)
[2017-02-06] MEDS: NYSTATIN/TRIAMCINOLONE CRM 15GM TP SCH ×3 (08:17→20:38)
[2017-02-06] MEDS: TAMSULOSIN 0.4 MG CAP.ER.24H PO SCH (08:17)
[2017-02-06] MEDS: DOCUSATE 100 MG CAPSULE PO SCH ×2 (08:17→20:39)
[2017-02-06] MEDS: CARVEDILOL 12.5 MG TABLET PO SCH ×2 (08:17→20:39)
[2017-02-06] MEDS: ATORVASTATIN 10 MG TABLET PO SCH (08:17)
[2017-02-06] MEDS: INSULIN ASPART 100 UNITS/ML, PEN SQ-INSULIN SCH ×4 (08:18→20:38)
[2017-02-06] MEDS: CEFTRIAXONE PMX 2GM/50ML 50 ML IV SCH (12:17)
[2017-02-06 13:59] VITALS: BP 139/78
[2017-02-06] MEDS: FLUCONAZOLE 200 MG/100 ML 100 ML IV SCH (16:24)
[2017-02-06 19:58] VITALS: BP 177/86
[2017-02-06] MEDS: hydrALAzine 20 MG/ML, 1ML IVPush PRN (20:36)
[2017-02-06] MEDS: INSULIN DETEMIR 100 UNITS/ML, PEN SQ-INSULIN SCH (20:37)
[2017-02-07 02:35] VITALS: BP 163/90
[2017-02-07 07:15] VITALS: BP 160/87
[2017-02-07] MEDS: FERROUS SULFATE 325 MG TABLET PO SCH ×3 (08:16→16:17)
[2017-02-07] MEDS: ATORVASTATIN 10 MG TABLET PO SCH (08:16)
[2017-02-07] MEDS: GABAPENTIN 300 MG CAPSULE PO SCH ×3 (08:16→20:36)
[2017-02-07] MEDS: TAMSULOSIN 0.4 MG CAP.ER.24H PO SCH (08:16)
[2017-02-07] MEDS: DOCUSATE 100 MG CAPSULE PO SCH ×2 (08:16→20:36)
[2017-02-07] MEDS: CARVEDILOL 12.5 MG TABLET PO SCH ×2 (08:16→20:37)
[2017-02-07] MEDS: HEPARIN 5,000 UNITS/ML, 1ML SQ SCH ×2 (08:17→16:17)
[2017-02-07] MEDS: INSULIN ASPART 100 UNITS/ML, PEN SQ-INSULIN SCH ×4 (08:17→20:46)
[2017-02-07] MEDS: NYSTATIN/TRIAMCINOLONE CRM 15GM TP SCH ×3 (08:19→20:36)
[2017-02-07 09:30] LABS: BLOOD UREA NITROGEN 50 mg/dL (7-18)
[2017-02-07 13:03] VITALS: BP 158/84
[2017-02-07 19:52] VITALS: BP 164/88
[2017-02-07] MEDS ORDERED: ONDANSETRON 2MG/ML, 2ML IVPush PRN (20:30)
[2017-02-07] MEDS ORDERED: POLYETHYLENE GLYCOL 17 GM PACKET PO PRN (20:30)
[2017-02-07] MEDS ORDERED: PHARMACY INSTRUCTION MC SCH (20:30)
[2017-02-07] MEDS ORDERED: ACETAMINOPHEN 325 MG TABLET PO PRN (20:30)
[2017-02-07] MEDS: INSULIN DETEMIR 100 UNITS/ML, PEN SQ-INSULIN SCH (20:46)
[2017-02-08 01:43] VITALS: BP 169/84
[2017-02-08 07:55] VITALS: BP 177/87
[2017-02-08] MEDS: FERROUS SULFATE 325 MG TABLET PO SCH ×3 (08:03→18:26)
[2017-02-08] MEDS: INSULIN ASPART 100 UNITS/ML, PEN SQ-INSULIN SCH ×4 (08:03→20:43)
[2017-02-08] MEDS: DOCUSATE 100 MG CAPSULE PO SCH ×2 (08:04→20:42)
[2017-02-08] MEDS: TAMSULOSIN 0.4 MG CAP.ER.24H PO SCH (08:04)
[2017-02-08] MEDS: ATORVASTATIN 10 MG TABLET PO SCH (08:04)
[2017-02-08] MEDS: GABAPENTIN 300 MG CAPSULE PO SCH ×3 (08:04→20:41)
[2017-02-08] MEDS: CARVEDILOL 12.5 MG TABLET PO SCH ×2 (08:04→20:42)
[2017-02-08] MEDS: HEPARIN 5,000 UNITS/ML, 1ML SQ SCH ×4 (08:04→23:54)
[2017-02-08] MEDS: NYSTATIN/TRIAMCINOLONE CRM 15GM TP SCH ×3 (08:05→20:41)
[2017-02-08 12:54] VITALS: BP 164/89
[2017-02-08 20:00] VITALS: BP 164/84
[2017-02-08] MEDS: INSULIN DETEMIR 100 UNITS/ML, PEN SQ-INSULIN SCH (20:43)
[2017-02-09 02:00] VITALS: BP 173/85
[2017-02-09 07:25] VITALS: BP 155/76
[2017-02-09] MEDS: INSULIN ASPART 100 UNITS/ML, PEN SQ-INSULIN SCH ×4 (08:51→21:04)
[2017-02-09] MEDS: FERROUS SULFATE 325 MG TABLET PO SCH ×3 (08:51→17:42)
[2017-02-09] MEDS: DOCUSATE 100 MG CAPSULE PO SCH ×2 (08:51→20:58)
[2017-02-09] MEDS: TAMSULOSIN 0.4 MG CAP.ER.24H PO SCH (08:51)
[2017-02-09] MEDS: ATORVASTATIN 10 MG TABLET PO SCH (08:51)
[2017-02-09] MEDS: GABAPENTIN 300 MG CAPSULE PO SCH ×3 (08:51→20:58)
[2017-02-09] MEDS: CARVEDILOL 12.5 MG TABLET PO SCH ×2 (08:51→20:58)
[2017-02-09] MEDS: HEPARIN 5,000 UNITS/ML, 1ML SQ SCH ×3 (08:52→23:19)
[2017-02-09] MEDS: NYSTATIN/TRIAMCINOLONE CRM 15GM TP SCH ×3 (08:52→20:57)
[2017-02-09 09:00] LABS: BLOOD UREA NITROGEN 54 mg/dL (7-18)
[2017-02-09 13:15] VITALS: BP 167/86
[2017-02-09 20:00] VITALS: BP 155/76
[2017-02-09] MEDS: INSULIN DETEMIR 100 UNITS/ML, PEN SQ-INSULIN SCH (21:03)
[2017-02-10 02:00] VITALS: BP 160/80
[2017-02-10 05:52] LABS: HEMATOCRIT 23.1 % (39.2-51.8); HEMOGLOBIN 7.7 g/dL (13.7-18.0); WHITE BLOOD COUNT 10.3 x10^3/uL (3.4-10)
[2017-02-10 05:57] LABS: ASPARTATE AMINO TRANSFERASE 21 U/L (15-37); BLOOD UREA NITROGEN 53 mg/dL (7-18)
[2017-02-10 08:00] VITALS: BP 170/86
[2017-02-10] MEDS: FERROUS SULFATE 325 MG TABLET PO SCH ×3 (09:05→17:27)
[2017-02-10] MEDS: INSULIN ASPART 100 UNITS/ML, PEN SQ-INSULIN SCH ×4 (09:05→20:38)
[2017-02-10] MEDS: CARVEDILOL 25 MG TABLET PO SCH ×2 (09:05→20:39)
[2017-02-10] MEDS: ATORVASTATIN 10 MG TABLET PO SCH (09:05)
[2017-02-10] MEDS: ERGOCALCIFEROL 50,000 UNIT CAPSULE PO SCH (09:05)
[2017-02-10] MEDS: TAMSULOSIN 0.4 MG CAP.ER.24H PO SCH (09:05)
[2017-02-10] MEDS: GABAPENTIN 300 MG CAPSULE PO SCH ×3 (09:05→20:39)
[2017-02-10] MEDS: HEPARIN 5,000 UNITS/ML, 1ML SQ SCH ×3 (09:05→23:35)
[2017-02-10] MEDS: NYSTATIN/TRIAMCINOLONE CRM 15GM TP SCH ×3 (09:06→20:55)
[2017-02-10] MEDS: DOCUSATE 100 MG CAPSULE PO SCH ×2 (09:06→20:39)
[2017-02-10 13:49] VITALS: BP 109/70
[2017-02-10 20:00] VITALS: BP 156/81
[2017-02-10] MEDS: AMLODIPINE 5 MG TABLET PO SCH (20:39)
[2017-02-10] MEDS ORDERED: INSULIN DETEMIR 100 UNITS/ML, PEN SQ-INSULIN SCH (21:00)
[2017-02-11 02:00] VITALS: BP 152/80
[2017-02-11] MEDS: DOCUSATE 100 MG CAPSULE PO SCH ×2 (08:31→21:12)
[2017-02-11] MEDS: GABAPENTIN 300 MG CAPSULE PO SCH ×3 (08:31→21:12)
[2017-02-11] MEDS: FERROUS SULFATE 325 MG TABLET PO SCH ×3 (08:31→16:58)
[2017-02-11] MEDS: TAMSULOSIN 0.4 MG CAP.ER.24H PO SCH (08:31)
[2017-02-11] MEDS: HEPARIN 5,000 UNITS/ML, 1ML SQ SCH ×2 (08:31→16:58)
[2017-02-11] MEDS: INSULIN ASPART 100 UNITS/ML, PEN SQ-INSULIN SCH ×4 (08:31→21:13)
[2017-02-11] MEDS: CARVEDILOL 25 MG TABLET PO SCH ×2 (08:32→21:12)
[2017-02-11] MEDS: NYSTATIN/TRIAMCINOLONE CRM 15GM TP SCH ×4 (08:32→21:13)
[2017-02-11] MEDS: ATORVASTATIN 10 MG TABLET PO SCH (08:32)
[2017-02-11 08:37] VITALS: BP 147/78
[2017-02-11 15:35] VITALS: BP 124/72
[2017-02-11 19:55] VITALS: BP 161/87
[2017-02-11] MEDS: AMLODIPINE 5 MG TABLET PO SCH (21:12)
[2017-02-11] MEDS: INSULIN DETEMIR 100 UNITS/ML, PEN SQ-INSULIN SCH (21:13)
[2017-02-12] MEDS: HEPARIN 5,000 UNITS/ML, 1ML SQ SCH ×3 (00:09→16:23)
[2017-02-12 03:27] VITALS: BP 166/84
[2017-02-12 06:00] LABS: HEMATOCRIT 23.6 % (39.2-51.8); HEMOGLOBIN 7.8 g/dL (13.7-18.0); WHITE BLOOD COUNT 10.1 x10^3/uL (3.4-10)
[2017-02-12 06:16] LABS: ASPARTATE AMINO TRANSFERASE 30 U/L (15-37); BLOOD UREA NITROGEN 60 mg/dL (7-18)
[2017-02-12] MEDS: TAMSULOSIN 0.4 MG CAP.ER.24H PO SCH (08:26)
[2017-02-12] MEDS: FERROUS SULFATE 325 MG TABLET PO SCH ×3 (08:26→16:23)
[2017-02-12] MEDS: ATORVASTATIN 10 MG TABLET PO SCH (08:26)
[2017-02-12] MEDS: CARVEDILOL 25 MG TABLET PO SCH ×2 (08:26→21:15)
[2017-02-12] MEDS: INSULIN ASPART 100 UNITS/ML, PEN SQ-INSULIN SCH ×4 (08:26→21:19)
[2017-02-12] MEDS: GABAPENTIN 300 MG CAPSULE PO SCH ×3 (08:26→21:15)
[2017-02-12] MEDS: NYSTATIN/TRIAMCINOLONE CRM 15GM TP SCH ×3 (08:27→21:16)
[2017-02-12 08:30] VITALS: BP 95/59
[2017-02-12] MEDS: DOCUSATE 100 MG CAPSULE PO SCH ×2 (08:30→21:15)
[2017-02-12 13:48] VITALS: BP 128/73
[2017-02-12 18:58] VITALS: BP 159/86
[2017-02-12] MEDS ORDERED: AMLODIPINE 5 MG TABLET PO SCH (21:00)
[2017-02-12] MEDS: INSULIN DETEMIR 100 UNITS/ML, PEN SQ-INSULIN SCH (21:18)
[2017-02-13 00:20] VITALS: BP 143/80
[2017-02-13] MEDS: HEPARIN 5,000 UNITS/ML, 1ML SQ SCH ×3 (02:25→11:03)
[2017-02-13 05:28] LABS: HEMATOCRIT 23.7 % (39.2-51.8); HEMOGLOBIN 7.9 g/dL (13.7-18.0); WHITE BLOOD COUNT 10.5 x10^3/uL (3.4-10)
[2017-02-13 05:51] LABS: ASPARTATE AMINO TRANSFERASE 17 U/L (15-37); BLOOD UREA NITROGEN 62 mg/dL (7-18)
[2017-02-13 08:00] VITALS: BP 143/84
[2017-02-13] MEDS: CARVEDILOL 25 MG TABLET PO SCH (08:26)
[2017-02-13] MEDS: INSULIN ASPART 100 UNITS/ML, PEN SQ-INSULIN SCH ×2 (08:26→14:09)
[2017-02-13] MEDS: FERROUS SULFATE 325 MG TABLET PO SCH ×2 (08:26→11:03)
[2017-02-13] MEDS: ATORVASTATIN 10 MG TABLET PO SCH (08:26)
[2017-02-13] MEDS: NYSTATIN/TRIAMCINOLONE CRM 15GM TP SCH (08:27)
[2017-02-13] MEDS: TAMSULOSIN 0.4 MG CAP.ER.24H PO SCH (08:27)
[2017-02-13] MEDS: GABAPENTIN 300 MG CAPSULE PO SCH (08:27)
[2017-02-13] MEDS: DOCUSATE 100 MG CAPSULE PO SCH (08:27)
[2017-02-13 14:45] VITALS: BP 153/82
[2017-02-13] MEDS ORDERED: INSULIN DETEMIR 100 UNITS/ML, PEN SQ-INSULIN SCH (21:00)
== END 2017-02-13 15:51 | DRG 682 ==
LOC: ED 10:46 → EDIP 10:47 → ED 10:53 → 4EST 13:15
PROVIDERS: ADMIT Internal Medicine; ATTEND Hospitalist
DX: I12.9 Hypertensive chronic kidney disease with stage 1 through stage 4 chronic kidney disease, or unspecified chronic kidney disease (principal); E43 Unspecified severe protein-calorie malnutrition; N17.9 Acute kidney failure, unspecified; L89.152 Pressure ulcer of sacral region, stage 2; D68.59 Other primary thrombophilia; E11.22 Type 2 diabetes mellitus with diabetic chronic kidney disease; E11.21 Type 2 diabetes mellitus with diabetic nephropathy; E87.5 Hyperkalemia; N39.0 Urinary tract infection, site not specified; N13.30 Unspecified hydronephrosis; N18.4 Chronic kidney disease, stage 4 (severe); N32.0 Bladder-neck obstruction; D50.9 Iron deficiency anemia, unspecified; E78.5 Hyperlipidemia, unspecified; F32.9 Major depressive disorder, single episode, unspecified; I25.10 Atherosclerotic heart disease of native coronary artery without angina pectoris; E55.9 Vitamin D deficiency, unspecified; N25.0 Renal osteodystrophy; R62.7 Adult failure to thrive; Z82.49 Family history of ischemic heart disease and other diseases of the circulatory system; Z84.1 Family history of disorders of kidney and ureter; I25.2 Old myocardial infarction; Z86.14 Personal history of Methicillin resistant Staphylococcus aureus infection; Z86.711 Personal history of pulmonary embolism; Z86.718 Personal history of other venous thrombosis and embolism; Z95.5 Presence of coronary angioplasty implant and graft; Z68.28 Body mass index [BMI] 28.0-28.9, adult
CPT/HCPCS: 36415; 51702; 71010; 74176; 80048; 80053; 80069; 81001; 82040; 82306; 82330; 82436; 82570; 82607; 82746; 82962; 83036; 83540; 83550; 83735; 83880; 83935; 83970; 84100; 84133; 84300; 84443; 85025; 86850; 86900; 87040; 87086; 87106; 93005; 96374; 96375; J0696; J1644; J1815; J0360; J1450

== ENCOUNTER 2018-04-29 08:29 | Observation (INO) | payer MEDICARE, OTHER ==
[~2018-04-29] VITALS: Ht 177.8 cm; Wt 100.2 kg
[~2018-04-29 08:29] MED LIST changes: +DULO20CA45 PO; +FINA1TAB16 PO; +MIRT7.5T8 PO; +ONDA4TAB7 PO
[2018-04-29] MEDS ORDERED: LACTATED RINGERS 1,000 ML IV SCH (08:59)
[2018-04-29] MEDS ORDERED: GABAPENTIN 300 MG CAPSULE PO ONE (09:30)
[2018-04-29] MEDS ORDERED: DIAZEPAM 5 MG TABLET PO ONE (09:30)
[2018-04-29] MEDS ORDERED: ACETAMINOPHEN 500 MG TABLET PO ONE (09:30)
[2018-04-29] MEDS ORDERED: ONDANSETRON ODT 8 MG PO ONE (09:30)
[2018-04-29] MEDS ORDERED: GABA300C10 PO (09:45)
[2018-04-29] MEDS ORDERED: SODI650T PO (09:51)
[2018-04-29] MEDS ORDERED: LIRA0.6P2 SQ-INSULIN (09:51)
[2018-04-29] MEDS ORDERED: ISOS10TA2 PO (09:51)
[2018-04-29] MEDS ORDERED: HYDR-3341 PO (09:51)
[2018-04-29] MEDS ORDERED: HYDR-3241 PO (09:51)
[2018-04-29] MEDS ORDERED: INSU100C5 SQ-INSULIN (09:51)
[2018-04-29] MEDS ORDERED: TORS20TA2 PO (09:51)
[2018-04-29] MEDS ORDERED: CARV6.252 PO (09:51)
[2018-04-29 09:55] VITALS: BP 146/79
[2018-04-29] MEDS ORDERED: FENTANYL PF 100 MCG/2ML ONE ×2 (09:56→11:56)
[2018-04-29] MEDS ORDERED: LISI-170 PO (10:03)
[2018-04-29] MEDS ORDERED: PHENYLEPHRINE 10 MG/ML ONE (10:23)
[2018-04-29] MEDS ORDERED: ALBUTEROL/IPRATROPIUM 2.5MG/0.5MG, 3 ML NPPB PRN (11:00)
[2018-04-29] MEDS ORDERED: ONDANSETRON 2MG/ML, 2ML IV PRN ×2 (11:00→12:00)
[2018-04-29] MEDS ORDERED: METOPROLOL 1 MG/ML, 5ML IV PRN (11:00)
[2018-04-29] MEDS ORDERED: OXYcodone 5 MG/5 ML ORAL.SOL UDC PO PRN (11:00)
[2018-04-29] MEDS ORDERED: hydrALAzine 20 MG/ML, 1ML IV PRN (11:00)
[2018-04-29] MEDS ORDERED: DEXAMETHASONE 4 MG/ML, 1ML ONE (11:18)
[2018-04-29] MEDS ORDERED: CEFAZOLIN 1,000 MG ONE (11:18)
[2018-04-29] MEDS ORDERED: PROPOFOL 10 MG/ML, 20ML ONE (11:18)
[2018-04-29] MEDS ORDERED: OXYcodone 5 MG/5 ML ORAL.SOL UDC ONE (11:57)
[2018-04-29] MEDS: FENTANYL PF 100 MCG/2ML IV PRN ×3 (11:58→12:40)
[2018-04-29] MEDS: INSULIN LISPRO 100 UNITS/ML, PEN LOW DOSE SS SQ-INSULIN SCH ×2 (16:00→21:00)
[2018-04-29] MEDS: GABAPENTIN 300 MG CAPSULE PO SCH ×2 (17:16→21:02)
[2018-04-29] MEDS: ISOSORBIDE DINITRATE 10 MG TABLET PO SCH ×2 (17:16→21:02)
[2018-04-29] MEDS: CARVEDILOL 6.25 MG TABLET PO SCH (18:15)
[2018-04-29 18:16] VITALS: BP 153/75
[2018-04-29 19:30] VITALS: BP 148/79
[2018-04-29] MEDS ORDERED: ATORVASTATIN 10 MG TABLET PO SCH (21:00)
[2018-04-29] MEDS: SODIUM BICARBONATE 650 MG TABLET PO SCH (21:01)
[2018-04-29] MEDS: TORSEMIDE 20 MG TABLET PO SCH (21:02)
[2018-04-30 00:08] VITALS: BP 118/57
[2018-04-30 03:48] VITALS: BP 121/63
[2018-04-30 05:39] LABS: BASOPHILS # (AUTO) 0.03 x10^3/uL (0-0.1); BASOPHILS % (AUTO) 0 % (0-1); EOSINOPHILS % (AUTO) 0 % (1-7); LYMPHOCYTES # (AUTO) 0.97 x10^3/uL (1-3.4); LYMPHOCYTES % (AUTO) 11 % (22-44); MD NO; MEAN CORPUSCULAR HEMOGLOBIN 30.9 pg (27.5-34.5); MEAN CORPUSCULAR HGB CONC 33.7 g/dL (33.2-36.2); MEAN CORPUSCULAR VOLUME 91.7 fL (81-97); MEAN PLATELET VOLUME 7.9 fL (7.4-10.4); MONOCYTES # (AUTO) 0.43 x10^3/uL (0.2-0.8); MONOCYTES % (AUTO) 5 % (2-9); NEUTROPHILS # (AUTO) 7.57 x10^3/uL (1.8-6.8); NEUTROPHILS % (AUTO) 84 % (42-75); PLATELET COUNT 224 x10^3/uL (130-400); RED BLOOD COUNT 2.62 x10^6/uL (4.38-5.82); RED CELL DISTRIBUTION WIDTH 15.2 % (9.4-14.8)
[2018-04-30 05:51] LABS: CHLORIDE 110 mmol/L (98-107)
[2018-04-30 06:03] LABS: ANION GAP 8 mmol/L (5-15); CALCIUM 8.1 mg/dL (8.5-10.1); CREATININE 3.98 mg/dL (0.7-1.3)
[2018-04-30 06:33] VITALS: BP 106/60
[2018-04-30] MEDS: CARVEDILOL 6.25 MG TABLET PO SCH (06:48)
[2018-04-30] MEDS: INSULIN LISPRO 100 UNITS/ML, PEN LOW DOSE SS SQ-INSULIN SCH ×2 (07:00→11:00)
[2018-04-30] MEDS ORDERED: INSULIN DEGLUDEC SC SCH (09:00)
[2018-04-30] MEDS ORDERED: LISINOPRIL 20 MG TABLET PO SCH (09:00)
[2018-04-30] MEDS ORDERED: [UNRECOGNIZED DRUG - OTHER] SC SCH (09:00)
[2018-04-30] MEDS ORDERED: VICTOZA 1.8 MG SC SCH (09:00)
[2018-04-30] MEDS: SODIUM BICARBONATE 650 MG TABLET PO SCH (09:13)
[2018-04-30] MEDS: ISOSORBIDE DINITRATE 10 MG TABLET PO SCH (09:14)
[2018-04-30] MEDS: GABAPENTIN 300 MG CAPSULE PO SCH (09:15)
[2018-04-30] MEDS: TORSEMIDE 20 MG TABLET PO SCH (09:15)
[2018-04-30 13:16] VITALS: BP 125/71
== END 2018-04-30 14:27 | disposition home or self-care (01) ==
LOC: OUT 08:29 → ORIP 11:34 → 4NOR 13:11 → DCLOUNGE 04-30 14:13
PROVIDERS: ADMIT Urology; ATTEND Urology
DX: N40.1 Benign prostatic hyperplasia with lower urinary tract symptoms (principal); R33.8 Other retention of urine; I25.10 Atherosclerotic heart disease of native coronary artery without angina pectoris; N18.4 Chronic kidney disease, stage 4 (severe); E78.5 Hyperlipidemia, unspecified; I12.9 Hypertensive chronic kidney disease with stage 1 through stage 4 chronic kidney disease, or unspecified chronic kidney disease; F32.9 Major depressive disorder, single episode, unspecified; E11.22 Type 2 diabetes mellitus with diabetic chronic kidney disease; E11.21 Type 2 diabetes mellitus with diabetic nephropathy; E21.3 Hyperparathyroidism, unspecified; E11.65 Type 2 diabetes mellitus with hyperglycemia; Z79.4 Long term (current) use of insulin
CPT/HCPCS: 36415; 52601; 80048; 82962; 85025; 88305; G0378; J0690; J1100; J2370; J2704; J3010; J7120; Q0162